=== PATIENT | female | born 1995 | race Two or more races ===

== ENCOUNTER 2021-01-12 11:55 | Inpatient (IN) ==
[2021-01-12] MEDS ORDERED: ONDANSETRON 4 MG/2 ML VIAL IV PRN ×2 (12:09→16:46)
[2021-01-12] MEDS ORDERED: BUTORPHANOL 2 MG/ML VIAL IV PRN (12:09)
[2021-01-12] MEDS ORDERED: MEPERIDINE 50 MG/1 ML VIAL IM PRN (12:09)
[2021-01-12] MEDS ORDERED: OXYTOCIN/LR 20 UNIT/1,000 ML BAG IV SCH (12:30)
[2021-01-12] MEDS ORDERED: LACTATED RINGERS 1,000 ML IV SCH (12:30)
[2021-01-12] MEDS ORDERED: ceFAZolin 2,000 MG/50 ML DUPLEX IV ONE (12:49)
[2021-01-12] MEDS ORDERED: FAMOTIDINE 20 MG/2 ML VIAL IV ONE (12:51)
[2021-01-12] MEDS ORDERED: CITRIC ACID/SODIUM CITRATE 30 ML UDCUP PO ONE (12:51)
[2021-01-12] MEDS ORDERED: hydrOXYzine HCL 25 MG/1 ML VIAL IM PRN (12:51)
[2021-01-12] MEDS ORDERED: ePHEDrine 50 MG/ML VIAL IV PRN (12:51)
[2021-01-12] MEDS ORDERED: PROMETHAZINE 25 MG/1 ML VIAL IM ONE (12:51)
[2021-01-12] MEDS ORDERED: diphenhydrAMINE 50 MG/1 ML VIAL IV PRN ×2 (12:51)
[2021-01-12] MEDS ORDERED: NALOXONE 0.4 MG/ML VIAL IV PRN (12:51)
[2021-01-12] MEDS ORDERED: LACTATED RINGERS 1,000 ML IV ONE (12:51)
[2021-01-12] MEDS ORDERED: ONDANSETRON 4 MG/2 ML VIAL IV ONE (12:51)
[2021-01-12 12:56] LABS: Basophils % 0.3 % (0.0-0.8); Eosinophils # 0.1 10*3/uL (0.0-0.87); Eosinophils % 0.5 % (0.00-10.9); Hematocrit 38.9 VOL% (35.7-47.0); Hemoglobin 13.3 GM/DL (12.0-16.0); Immature Granulocytes % 0.6 %; Immature Granulocytes Absolute 0.07 #; Lymphocytes % 18.2 % (21.3-54.2); Mean Corpuscular HGB Conc 34.2 GM/DL (32-36); Mean Corpuscular Volume 96.5 FL (87-102); Mean Platelet Volume 11.5 FL (9.6-12.0); Monocytes % 6.5 % (1.7-12.7); Neutrophils % 73.9 % (38.7-73.9); Platelet Count 150 T/CUMM (130-400); Red Blood Count 4.03 MC/CUMM (3.8-5.5); Red Cell Distribution Width 12.5 % (9.3-17.3)
[2021-01-12] MEDS ORDERED: AMPICILLIN INJ 2,000 MG in SODIUM CHLORIDE 0.9% 100 ML IV ONE (12:56)
[2021-01-12] MEDS ORDERED: fentaNYL 2 MCG/ROPIV 0.2% EPID 100 ML EPIDURAL SCH (13:00)
[2021-01-12 13:17] LABS: Albumin 2.7 G/DL (3.4-5.0); Bilirubin,Total 0.6 MG/DL (0.2-1.0); Calcium 9.1 MG/DL (8.5-10.1); Osmolality,Calculated 269.8 MOS/KG (273-304); Potassium 3.6 MMOL/L (3.5-5.1); Total Protein 7.2 G/DL (6.4-8.2)
[2021-01-12] MEDS ORDERED: AMPICILLIN INJ 1,000 MG in SODIUM CHLORIDE 0.9% 100 ML IV SCH ×3 (13:35→18:00)
[2021-01-12 14:54] LABS: Amorphous Crystals,Urine Occasional /HPF (Few); Bilirubin,Urine Negative (Negative); Blood, Urine Negative (Negative); Glucose,Urine (UA) Negative (Negative); Ketones,Urine Negative (Negative); Mucus,Urine Occasional /LPF (Occasional); Nitrite,Urine Negative (Negative); Protein,Urine Negative; Urine Appearance CLEAR (Clear); Urine Color Straw (Yellow); Urine Specific Gravity 1.006 (1.001-1.035); Urine Urobilinogen < 2.0 EU/DL (0.2-1.0)
[2021-01-12] MEDS ORDERED: miSOPROStoL 200 MCG TABLET ONE (15:34)
[2021-01-12] MEDS ORDERED: TRANEXAMIC ACID 1,000 MG/10 ML VIAL ONE (15:34)
[2021-01-12] MEDS ORDERED: OXYTOCIN/LR 20 UNIT/1,000 ML BAG IV ONE ×2 (15:34→16:46)
[2021-01-12] MEDS ORDERED: METHYLERGONOVINE 0.2 MG/1 ML AMP ONE (15:35)
[2021-01-12] MEDS ORDERED: CARBOPROST TROMETHAMINE 250 MCG/ML AMP IM ONE (15:35)
[2021-01-12] MEDS ORDERED: SODIUM CHLORIDE 0.9% 0 ML IV ONE (15:36)
[2021-01-12 16:38] LABS: Cord Arterial Blood HCO3 21.7 MMOL/L
[2021-01-12 16:43] LABS: Cord Venous Blood PCO2 40.9 MMHG; Cord Venous Blood PO2 22.4
[2021-01-12] MEDS ORDERED: DIPH/TET/ACEL PERT BOOSTER VACCINE 0.5 ML VIAL IM ONE (16:46)
[2021-01-12] MEDS ORDERED: oxyCODONE/ACETAMINOPHEN 5-325 MG TABLET PO PRN ×2 (16:46)
[2021-01-12] MEDS ORDERED: RHO(D) IMMUNE GLOBULIN 300 MCG SYRINGE IM ONE (16:46)
[2021-01-12] MEDS ORDERED: ACETAMINOPHEN 325 MG TABLET PO PRN (16:46)
[2021-01-12] MEDS ORDERED: HYDROCORTISONE 2.5% RECTAL CREAM 30 GM TUBE TOP PRN (16:46)
[2021-01-12] MEDS ORDERED: MEASLES/MUMPS/RUBELLA VACCINE 0.5 ML VIAL SUBCUT ONE (16:46)
[2021-01-12] MEDS ORDERED: BISACODYL 10 MG SUPP RECTAL PRN (16:46)
[2021-01-12] MEDS ORDERED: LANOLIN 50% CREAM 0.3 OZ TUBE TOP PRN (16:46)
[2021-01-12] MEDS ORDERED: BENZOCAINE 20%/MENTHOL 0.5% SPRAY 56 GM CAN TOP PRN (16:46)
[2021-01-12] MEDS ORDERED: WITCH HAZEL PADS 100/JAR TOP PRN (16:46)
[2021-01-12] MEDS: DOCUSATE SODIUM 100 MG CAPSULE PO SCH (21:32)
[2021-01-12] MEDS: IBUPROFEN 800 MG TABLET PO PRN (21:32)
[2021-01-13] MEDS: ACETAMINOPHEN/CODEINE 300-30 MG TABLET PO PRN ×2 (00:05→17:47)
[2021-01-13 05:32] LABS: Basophils % 0.3 % (0.0-0.8); Eosinophils # 0.2 10*3/uL (0.0-0.87); Eosinophils % 1.3 % (0.00-10.9); Hematocrit 33.4 VOL% (35.7-47.0); Hemoglobin 11.6 GM/DL (12.0-16.0); Immature Granulocytes % 0.9 %; Lymphocytes # 2.1 10*3/uL (1.4-4.0); Mean Corpuscular HGB Conc 34.7 GM/DL (32-36); Mean Corpuscular Volume 96.5 FL (87-102); Mean Platelet Volume 11.4 FL (9.6-12.0); Monocytes % 7.6 % (1.7-12.7); Neutrophils % 71.9 % (38.7-73.9); Platelet Count 107 T/CUMM (130-400); Red Blood Count 3.46 MC/CUMM (3.8-5.5); Red Cell Distribution Width 12.4 % (9.3-17.3); White Blood Count 11.5 T/CUMM (4-12)
[2021-01-13] MEDS: DOCUSATE SODIUM 100 MG CAPSULE PO SCH ×2 (07:37→20:27)
[2021-01-13] MEDS: IBUPROFEN 800 MG TABLET PO PRN ×2 (07:37→17:19)
[2021-01-14] MEDS: ACETAMINOPHEN/CODEINE 300-30 MG TABLET PO PRN ×2 (03:55→08:24)
[2021-01-14 07:59] VITALS: BP 93/64
[2021-01-14] MEDS: DOCUSATE SODIUM 100 MG CAPSULE PO SCH (08:25)
[2021-01-14] MEDS ORDERED: ONDANSETRON 4 MG TABLET PO PRN (09:49)
== END 2021-01-14 14:44 | disposition home or self-care (01) | DRG 807 ==
LOC: N.LD 11:55 → N.OB 21:10
PROVIDERS: ADMIT Specialist; ATTEND Specialist